=== PATIENT | male | born 1995 | race Caucasian/White ===

== ENCOUNTER 2024-04-26 15:17 | Emergency (ER) | payer BC, SELFPAY ==
--- NOTE | ~2024-04-26 | XR_ITS ---
EXAMINATION: XR chest 2V DATE: 04/26/2024 15:43 INDICATION: Chest pain TECHNIQUE: PA and lateral views of the chest were obtained. COMPARISON: None FINDINGS: The lungs are clear with no focal airspace opacities, pulmonary edema, pleural effusion or pneumothor ax. The cardiomediastinal silhouette is normal. Visualized bones and soft tissues are unremarkable. IMPRESSION: 1. No acute cardiopulmonary disease. Reviewed, dictated and finalized at location A.
--- NOTE | 2024-04-26 15:25 | ECG_ITS ---
Test Date: 2024-04-26 15:24:10 Measurements Intervals [place] Rate: 84 P: 50 SD: 152 QRS: 19 QRSD: 108 T: 31 QT: 350 QTc: 416 Interpretive Statements SINUS RHYTHM WITH SINUS ARRHYTHMIA INCOMPLETE RIGHT BUNDLE BRANCH BLOCK No previous ECG available for comparison Electronically Signed On 04-27-2024 15:51:02 CDT by Vilma Fernandez M.D.
--- NOTE | 2024-04-26 15:31 | ED.ARRPALP ---
HPI - Arrhythmia/Palpitations General Chief Complaint: Arrhythmia/Palpitations Stated Complaint: palpatations Time Seen by Provider: 04/26/24 16:42 Focused HPI: GENERAL: Well-appearing, well-nourished, and in no acute distress. HEAD: Normocephalic, atraumatic. CHEST: Clear to auscultation. No respiratory distress. HEART: Regular rate and rhythm. NEURO: Alert and oriented x3. Patient screened in triage and initial orders placed. Additional care and disposition to be based upon diagnostic testing and treatment. 29-year-old male presents emergency room for evaluation of left anterior chest pain. States he was at work he experienced of 30-45 seconds of palpitations or accompanied with shortness of breath. Currently patient is not experiencing any chest pain. Denies any shortness of breath or difficulty breathing denies nausea vomiting. His syncopal episodes. Patient endorses a history of CHINMAY without the use of the CPAP. Related Data Allergies Allergy/AdvReac Type Severity Reaction Status Date / Time No Known Allergies Allergy Verified 04/26/24 16:45 Course Vital Signs Vital signs: Vital Signs Temperature 36.4 C 04/26/24 15:59 Pulse Rate 74 04/26/24 15:59 Respiratory Rate 16 04/26/24 15:59 Blood Pressure 142/82 H 04/26/24 15:59 Pulse Oximetry 96 04/26/24 15:59 Oxygen Delivery Room Air 04/26/24 15:59 Temperature 36.4 C 04/26/24 15:59 Pulse Rate 77 04/26/24 16:57 Respiratory Rate 14 04/26/24 17:32 Blood Pressure 132/81 04/26/24 17:32 Pulse Oximetry 99 04/26/24 17:32 Oxygen Delivery Room Air 04/26/24 15:59 MDM - Arrhythmia/Palpitations Lab Data 04/26/24 15:37 04/26/24 15:37 Labs: Lab Results 04/26/24 Range/Units 15:37 WBC 8.3 (4.5-10.0) K/mm3 RBC 5.32 (4.6-6.20) M/mm3 Hgb 15.5 (14.0-18.0) g/dL Hct 45.6 (42.0-52.0) % MCV 85.7 (80-100) fl MCH 29.1 (26-34) pg MCHC 34.0 (32-36) g/dl RDW 13.3 (11.5-14.5) % Plt Count 272 (150-375) k/mm3 MPV 8.7 (7.4-10.4) fl Immature Gran % (Auto) 0.7 H (0-0.5) % Neut % (Auto) 53.9 (45.5-73.1) % Lymph % (Auto) 31.9 (18.3-44.2) % [place] % (Auto) 12.2 H (2.6-8.5) % Eos % (Auto) 0.8 (0-4.4) % Baso % (Auto) 0.5 (0.2-1.2) % Lymph # (Auto) 2.65 (0.9-3.2) K/mm3 [place] # (Auto) 1.0 H (0.1-0.6) K/mm3 Eos # (Auto) 0.1 (0-0.3) K/mm3 Baso # (Auto) 0.0 (0.0-0.1) K/mm3 Abs Immat Gran (auto) 0.06 H (0.00-0.031) K/mm3 Absolute Neuts (auto) 4.5 (1.3-6.7) K/mm3 Absolute Nucleated RBC 0.000 (0.0-0.012) K/mm3 Nucleated RBC % 0.0 (0.0-0.2) % PT 13.0 (11.1-14.7) Seconds INR 1.0 APTT 24.9 (22.3-36.8) Seconds D-Dimer < 0.27 (<0.48) ug/mL Sodium 138 (137-145) mmol/L Potassium 3.9 (3.4-5.0) mmol/L Chloride 100 (98-107) mmol/L Carbon Dioxide 25 (22-30) mmol/L Anion Gap 13 H (4-12) mmol/L BUN 17 (9-20) mg/dL Creatinine 0.80 (0.7-1.3) mg/dL Estim Creat Clear Calc Not Reportable Estimated GFR > 60 (59 - ) Glucose 92 (65-110) mg/dL Calcium 9.7 (8.4-10.2) mg/dL Total Bilirubin 0.4 (0.2-1.3) mg/dL AST 37 (17-59) U/L ALT 54 H (6-50) U/L Alkaline Phosphatase 76 (38-126) U/L Troponin I < 0.012 (0.000-0.034) ng/mL Total Protein 8.0 (6.3-8.2) g/dL Albumin 4.7 (3.5-5.1) g/dL Lipase 90 (23-300) U/L Discharge Plan Discharge Clinical Impression: Palpitations Patient Disposition: Home, Self-Care Condition: Improved Instructions: Heart Palpitations (DC) Additional Instructions: RETURN IF SYMPTOMS ARE WORSENING , CALL YOUR FAMILY PHYSICIAN FOR APPOINTMENT, TAKE TYLENOL NEEDED FOR ACHES AND PAIN, CONTINUE HOME MEDICATIONS. Follow-up/Referrals: Yordy,Caro Andersen MD [Non-Staff] -
[2024-04-26 15:48] LABS: Basophils Percent Auto 0.5 % (0.2-1.2); Eosinophils Absolute Auto 0.1 K/mm3 (0-0.3); Eosinophils Percent Auto 0.8 % (0-4.4); Hematocrit 45.6 % (42.0-52.0); Hemoglobin 15.5 g/dL (14.0-18.0); Immature Granulocyte Absolute 0.06 K/mm3 (0.00-0.031); Immature Granulocyte Percent A 0.7 % (0-0.5); Lymphocytes Absolute Auto 2.65 K/mm3 (0.9-3.2); Lymphocytes Percent Auto 31.9 % (18.3-44.2); Mean Corpuscular Hemoglobin 29.1 pg (26-34); Mean Corpuscular Volume 85.7 fl (80-100); Mean Platelet Volume 8.7 fl (7.4-10.4); Monocytes Percent Auto 12.2 % (2.6-8.5); Neutrophils Absolute Auto 4.5 K/mm3 (1.3-6.7); Neutrophils Percent Auto 53.9 % (45.5-73.1); Platelet Count Result 272 k/mm3 (150-375); Red Blood Count 5.32 M/mm3 (4.6-6.20); Red Cell Distribution Width 13.3 % (11.5-14.5); White Blood Count 8.3 K/mm3 (4.5-10.0)
[2024-04-26 15:58] LABS: Alanine Aminotransferase 54 U/L (6-50); Albumin Level 4.7 g/dL (3.5-5.1); Alkaline Phosphatase 76 U/L (38-126); Anion Gap 13 mmol/L (4-12); Aspartate Amino Transferase 37 U/L (17-59); Bilirubin,Total 0.4 mg/dL (0.2-1.3); Blood Urea Nitrogen 17 mg/dL (9-20); Calcium 9.7 mg/dL (8.4-10.2); Carbon Dioxide 25 mmol/L (22-30); Chloride 100 mmol/L (98-107); Estimated Glomerular Filt Rate > 60; Glucose 92 mg/dL (65-110); Lipase 90 U/L (23-300); Potassium 3.9 mmol/L (3.4-5.0); Sodium 138 mmol/L (137-145)
[2024-04-26 15:59] VITALS: BP 142/82; PULSE 74; RESP 16; TEMP 36.4; O2SAT 96
[2024-04-26 16:03] LABS: Partial Thromboplastin Time 24.9 Seconds (22.3-36.8)
[2024-04-26 16:10] LABS: Troponin I < 0.012 ng/mL (0.000-0.034)
[2024-04-26 16:26] LABS: D Dimer < 0.27 ug/mL (<0.48)
[2024-04-26 16:45] VITALS: PULSE 73
[2024-04-26 16:57] VITALS: BP 142/81; PULSE 77; RESP 14; O2SAT 99
--- NOTE | 2024-04-26 17:27 | ED.GENADULT ---
HPI - General Adult General Chief complaint: Arrhythmia/Palpitations Stated complaint: palpatations Time Seen by Provider: 04/26/24 16:42 Source: patient History of Present Illness HPI narrative: PATIENT WAS AT WORK, FELT EXTRA BEATS BACK ON FORCE LASTED FOR FEW MINUTES. PATIENT IS TELLING ME THAT HE HAD SIMILAR SYMPTOMS AT LEAST TWICE A MONTH FOR THE LAST 5 YEARS. NEVER BEEN SEEN BY DR. LUKE BEFORE. HE DENIES ANY FEVER, CHILLS, NAUSEA, VOMITING, CHEST PAIN, SHORTNESS OF BREATH, HEADACHE OR BACK PAIN. PATIENT DENYING ANY SYMPTOM ON ARRIVAL TO THE ED PATIENT SHOE, DRINKS ALCOHOL AT LEAST 6 TIMES A WEEK, NO MY 1 Related Data Allergies Allergy/AdvReac Type Severity Reaction Status Date / Time No Known Allergies Allergy Verified 04/26/24 16:45 Review of Systems Review of Systems: All systems reviewed & are unremarkable except as noted in HPI and below Exam Narrative: GENERAL APPEARANCE: WELL-DEVELOPED, WELL-NOURISHED SKIN: NORMAL COLOR HEAD: NORMOCEPHALIC, NONTRAUMATIC EYES: CLEAR CONJUNCTIVA ENT: OROPHARYNX NORMAL, EARS NORMAL, NOSE NORMAL NECK: SUPPLE, NONTENDER CHEST AND RESPIRATORY: AIRWAY PATENT, NO RESPIRATORY DISTRESS, NO ACCESSORY MUSCLE USE HEART: REGULAR RATE/RHYTHM ABDOMEN: SOFT, NONTENDER, NO ORGANOMEGALY, QUIET BOWEL SOUNDS VASCULAR: NORMAL PERIPHERAL PULSES, NORMAL CAPILLARY REFILL. MUSCULOSKELETAL: NORMAL RANGE OF MOTION, NONTENDER BACK NEUROLOGIC: ALERT AND ORIENTED ?3, AESTHETICS INSTRUCTOR IS NORMAL TESTED, NO GROSS MOTOR DEFICIT Course Vital Signs Vital signs: Vital Signs Temperature 36.4 C 04/26/24 15:59 Pulse Rate 74 04/26/24 15:59 Respiratory Rate 16 04/26/24 15:59 Blood Pressure 142/82 H 04/26/24 15:59 Pulse Oximetry 96 04/26/24 15:59 Oxygen Delivery Room Air 04/26/24 15:59 Temperature 36.4 C 04/26/24 15:59 Pulse Rate 77 04/26/24 16:57 Respiratory Rate 14 04/26/24 16:57 Blood Pressure 142/81 H 04/26/24 16:57 Pulse Oximetry 99 04/26/24 16:57 Oxygen Delivery Room Air 04/26/24 15:59 Medical Decision Making [facility] Narrative Medical decision making narrative: PATIENT PRESENTS WITH PALPITATION INTERMITTENT FEW MINUTES PRIOR TO ARRIVAL, NO SYMPTOMS ON ARRIVAL TO THE ED. VITAL SIGNS ON ARRIVAL SHOWED NO SIGNIFICANT ABNORMALITIES. PHYSICAL EXAMINATION WAS UNREMARKABLE EXCEPT OBESE PATIENT. DIFFERENTIAL DIAGNOSIS INCLUDE ANXIETY, ELECTROLYTE IMBALANCE, DEHYDRATION, TACHYARRHYTHMIA BLOOD WORKUP TODAY SHOWED NO SIGNIFICANT ABNORMALITY CHEST X-RAY SHOWED NO ACUTE ABNORMALITIES, EKG SHOWED NORMAL SINUS RHYTHM. PATIENT DECLINED TO TAKE OF WORK TOMORROW. DISCHARGE THE PT WAS DISCHARGED TO HOME.THE PT,S CONDITION UPON DISCHARGE WAS FAIR,EDUCATION WAS PROVIDED TO THE PT IN REFERENCE TO THE FINAL IMPRESSION,DISCHARGE STUDY RESULTS,TREATMENT,PROGNOSIS AND NEED FOR FOLLOW UP . Differential Diagnosis Differential Diagnosis: ABOVE Vital Signs Vital Signs: Vital Signs Temperature 36.4 C 04/26/24 15:59 Pulse Rate 74 04/26/24 15:59 Respiratory Rate 16 04/26/24 15:59 Blood Pressure 142/82 H 04/26/24 15:59 Pulse Oximetry 96 04/26/24 15:59 Oxygen Delivery Room Air 04/26/24 15:59 Temperature 36.4 C 04/26/24 15:59 Pulse Rate 77 04/26/24 16:57 Respiratory Rate 14 04/26/24 16:57 Blood Pressure 142/81 H 04/26/24 16:57 Pulse Oximetry 99 04/26/24 16:57 Oxygen Delivery Room Air 04/26/24 15:59 Lab Data 04/26/24 15:37 04/26/24 15:37 Labs: Lab Results 04/26/24 Range/Units 15:37 WBC 8.3 (4.5-10.0) K/mm3 RBC 5.32 (4.6-6.20) M/mm3 Hgb 15.5 (14.0-18.0) g/dL Hct 45.6 (42.0-52.0) % MCV 85.7 (80-100)
[2024-04-26 17:30] VITALS: RESP 13; O2SAT 98
[2024-04-26 17:32] VITALS: BP 132/81; RESP 14; O2SAT 99
== END 2024-04-26 17:57 | disposition home or self-care (01) ==
PROVIDERS: Nurse Practitioner Family; Emergency Provider Emergency Medicine
DX: R00.2 Palpitations (principal); I45.10 Unspecified right bundle-branch block
CPT/HCPCS: 36415; 71046; 80053; 83690; 84484; 85025; 85380; 85610; 85730; 93005; 99284